=== PATIENT | female | born 1945 | race Two or more races ===

== ENCOUNTER 2021-04-09 10:31 | Outpatient (CLI) | payer OTHER | END 2021-04-09 10:53 | disposition home or self-care (01) | LOC: SONOGRAMA 10:31 | PROVIDERS: ATTEND Pathology Anatomic Pathology & Clinical Pathology | DX: D34 Benign neoplasm of thyroid gland (principal); E07.89 Other specified disorders of thyroid ==

== ENCOUNTER 2021-10-15 11:22 | Outpatient (CLI) | payer OTHER | END 2021-10-15 11:24 | disposition home or self-care (01) | LOC: SONOGRAMA 11:22 | PROVIDERS: ATTEND Pathology Anatomic Pathology & Clinical Pathology | DX: C73 Malignant neoplasm of thyroid gland (principal); E04.2 Nontoxic multinodular goiter ==

== ENCOUNTER 2023-04-10 09:07 | Outpatient (CLI) | payer OTHER | END 2023-04-10 09:09 | disposition home or self-care (01) | LOC: SONOGRAMA 09:07 | PROVIDERS: ATTEND Pathology Anatomic Pathology & Clinical Pathology | DX: D34 Benign neoplasm of thyroid gland (principal); E07.9 Disorder of thyroid, unspecified ==